=== PATIENT | female | born 1950 | race Caucasian/White ===

== ENCOUNTER → 2018-04-28 16:53 | Outpatient (CLI) | payer MEDICARE ==
[2018-04-28 17:35] LABS: CHOL - HDL RATIO 6.3 ratio (2.3-4.1); LDL-HDL RATIO 3.7 ratio (1.5-3.5)
== END | disposition home or self-care (01) ==
LOC: D.LABREF 16:53
PROVIDERS: Internal Medicine Cardiovascular Disease
DX: I10 Essential (primary) hypertension (principal)